=== PATIENT | female | born 1985 | race Caucasian/White ===

== ENCOUNTER 2024-11-08 03:57 | Emergency (ER) | payer OTHER ==
[~2024-11-08] VITALS: Ht 154.9 cm; Wt 83.3 kg
[2024-11-08 04:19] LABS: BASOPHILS 0.2 % (0.1-1.2); EOSINOPHILS 0.2 % (0.7-5.8); HEMATOCRIT 40.6 % (34.1-44.9); HEMOGLOBIN 13.5 g/dL (11.2-15.7); MCH 32.6 PG (25.6-32.2); MCHC 33.3 g/dL (32.2-35.5); MCV 98.1 fL (79.4-94.8); MONOCYTES 6.5 % (4.7-12.5); NEUTROPHILS 88.7 % (34.0-71.1); PLATELET COUNT 178 K/uL (182-369); RBC 4.14 M/uL (3.93-5.22)
[2024-11-08] MEDS ORDERED: BACTRIM DS TAB1 EACH PO (04:34)
[2024-11-08] MEDS ORDERED: HYDROCODON-ACE1 EA10 PO (04:34)
[2024-11-08] MEDS ORDERED: TRIMETHOPRIM/SULFAMETHOXAZOLE 1 EA HOME.PACK PO ONE (04:45)
[2024-11-08] MEDS ORDERED: HYDROCODONE BIT/ACETAMINOPHEN 5/325 MG 1 TAB HOME.PACK PO ONE (04:45)
[2024-11-08 04:58] VITALS: BP 155/77
== END 2024-11-08 04:59 | disposition home or self-care (01) ==
LOC: ED 03:57
PROVIDERS: Family Medicine
DX: L03.116 Cellulitis of left lower limb (principal)
CPT/HCPCS: 36415; 85025; 86140; 99283; A9270